=== PATIENT | male | born 1975 | race African-American/Black ===

== ENCOUNTER 2016-05-16 21:24 | Emergency (ER) | payer SELFPAY ==
[~2016-05-16] VITALS: Ht 188 cm; Wt 84.4 kg
[2016-05-16 22:13] VITALS: BP 113/79; PULSE 79; RESP 18; TEMP 98.5; O2SAT 100
[2016-05-16] MEDS ORDERED: IBUP-232 PO (23:05)
[2016-05-16] MEDS ORDERED: ORPH100T99 PO (23:05)
--- NOTE | 2016-05-16 23:05 | PD ---
HPI Chief Complaint: Back/ Neck Pain or Injury Time Seen by Provider: 22:57 Travel History International Travel<30 days: No Contact w/Intl Traveler<30days: No Traveled to known affect area: No History of Present Illness HPI The patient is a 41-year-old [place] male presents emergency department for back spasms. The patient states he was walking earlier today when he developed back spasms ever located in the thoracic region. The spasms "up-and- down the thoracic region and are worse with extension, flexion, and rotation. The patient denies any radiation of the pain into the neck or down into the lower extremities. The patient denies any nausea, vomiting, or abdominal pain. The patient denies any genitourinary symptoms including dysuria, frequency, urgency, hematuria, or incontinence. He denies any weakness or numbness of the upper or lower extremities. The patient denies any direct trauma to the back. He also denies any history of HIV, end-stage renal disease, or IV drug use. PFSH Past Medical History Diminished Hearing: No Musculoskeletal: Yes (BACK PAIN) Past Surgical History Other Surgery: Yes (ONE TESTICLE REMOVED) Social History Alcohol Use: Yes (8 BEERS A DAY) Tobacco Use: Yes (1 PPD) Substance Use: No Allergies-Medications (Allergen,Severity, Reaction): Coded Allergies: No Known Allergies (Unverified , 05/16/16) Reported Meds & Prescriptions Reported Meds & Active Scripts Active No Active Prescriptions or Reported Medications Review of Systems Except as stated in HPI: all other systems reviewed are Neg General / Constitutional: No: Fever HENT: No: Neck Stiffness, Neck Pain Cardiovascular: No: Chest Pain or Discomfort Respiratory: No: Shortness of Breath Gastrointestinal: No: Nausea, Vomiting Genitourinary: No: Urgency, Frequency, Dysuria, Incontinence Musculoskeletal: Positive: Limited ROM, Pain Skin: No Rash Neurologic: No: Paresthesia, Sensory Disturbance Physical Exam Narrative GENERAL: Awake, alert, pleasant 41-year-old male who appears his stated age is in no acute respiratory distress. SKIN: Warm and dry. HEAD: Atraumatic. Normocephalic. EYES: No injection or drainage. NECK: Trachea midline. No JVD. No meningeal signs. GASTROINTESTINAL: Abdomen soft, non-tender, nondistended. Back: No CVA tenderness. Patient has tenderness of the paravertebral muscles in the midthoracic region. Pain is elicited with extension, rotation, and flexion. No obvious deformity or step-off over the thoracic spine. MUSCULOSKELETAL: No obvious deformities. No clubbing. No cyanosis. No edema. Ambulates without difficulty. NEUROLOGICAL: Awake and alert. No obvious cranial nerve deficits. Motor grossly within normal limits. Normal speech. Nonfocal. PSYCHIATRIC: Appropriate mood and affect; insight and judgment normal. Data Data Last Documented VS Vital Signs Date Time Temp Pulse Resp B/P Pulse Ox O2 Delivery O2 Flow Rate FiO2 05/16/16 22:13 98.5 79 18 113/79 100 Orders Ketorolac Inj (Toradol Inj) (05/16/16 23:15) Orphenadrine Inj (Norflex Inj) (05/16/16 23:15) [facility] Medical Decision Making Medical Screen Exam Complete: Yes Emergency Medical Condition: Yes Medical Record Reviewed: Yes Differential Diagnosis Differential diagnosis includes back pain, fracture, spasm, nephrolithiasis, epidural abscess. Narrative Course The patient is afebrile and has no significant risk factors for epidural abscess as he denies HIV, ESRD, and IVDA. The patient's pain is elicited with movement, therefore, will be treated with anti-inflammatories and muscle relaxers. The patient is advised to follow-up with a primary physician and return if symptoms worsen or progress. Diagnosis Primary Impression: Back muscle spasm Patient Instructions: General Instructions Additional Instructions: Norflex and ibuprofen as directed. Stretching exercises, apply ice and/or heat to the affected area. Follow-up with a primary physician. Med/Other Pt SpecificInfo: Prescription(s) given Scripts Ibuprofen 600 Mg [id number] Mg PO Q6H PRN (Pain/Inflammation) #20 TAB Ref 0 Prov:Michele Chen MD 05/16/16 Orphenadrine ER 12 HR (Orphenadrine CR)100 Mg [id number] Mg PO Q12HR 14 Days Ref 0 Prov:Michele Chen MD 05/16/16 Disposition: 01 DISCHARGE HOME Condition: Stable Michele Chen MD May 16, 2016 23:05
[2016-05-16] MEDS ORDERED: KETOROLAC TROMETHAMINE 60 MG/2 ML (IM) VIAL IM ONE (23:15)
[2016-05-16] MEDS ORDERED: ORPHENADRINE INJ 60 MG/2 ML AMP IM ONE (23:15)
[2016-05-16 23:49] VITALS: BP 117/74
== END 2016-05-16 23:50 | disposition home or self-care (01) ==
LOC: PHEFT 21:24
DX: M62.830 Muscle spasm of back (principal); F17.200 Nicotine dependence, unspecified, uncomplicated; Z87.39 Personal history of other diseases of the musculoskeletal system and connective tissue
CPT/HCPCS: 96372; 99283; J1885; J2360

== ENCOUNTER 2016-11-30 08:36 | Emergency (ER) | payer SELFPAY ==
[~2016-11-30] VITALS: Ht 185.4 cm; Wt 88.0 kg
[~2016-11-30 08:36] MED LIST: IBUP-232 PO; ORPH100T99 PO
[2016-11-30 08:42] VITALS: BP 124/65; PULSE 70; RESP 16; TEMP 97.7; O2SAT 98
[2016-11-30 09:00] VITALS: BP 124/65; PULSE 70; RESP 16; TEMP 97.7; O2SAT 98
[2016-11-30] MEDS ORDERED: IBUP800T23 PO (09:00)
--- NOTE | 2016-11-30 09:00 | PD ---
HPI . Right elbow pain Chief Complaint: Right elbow pain Time Seen by Provider: 08:52 Travel History International Travel<30 days: No Contact w/Intl Traveler<30days: No History of Present Illness HPI This patient presents with a two-week history of atraumatic right elbow pain. He rates the pain 10/10. No exacerbating or relieving factor. He states that he does not work on his hands and knees. He states that he does not have a job. He has not taken anything for it. There has been no associated fever or any other systemic complaints. PFSH Past Medical History Diminished Hearing: No Musculoskeletal: Yes (BACK PAIN) Past Surgical History Other Surgery: Yes (ONE TESTICLE REMOVED) Social History Alcohol Use: Yes (8 BEERS A DAY) Tobacco Use: Yes (1 PPD) Substance Use: No Allergies-Medications (Allergen,Severity, Reaction): Coded Allergies: No Known Allergies (Unverified , 05/16/16) Reported Meds & Prescriptions Reported Meds & Active Scripts Active Ibuprofen 600 Mg Tab 600 Mg PO Q6H PRN Orphenadrine CR (Orphenadrine Citrate) 100 Mg Tab 100 Mg PO Q12HR 14 Days Review of Systems Except as stated in HPI: all other systems reviewed are Neg Musculoskeletal: Positive: Arthralgias Physical Exam Narrative GENERAL: Awake and alert and in no acute distress. He reports his pain as 10/ 10 but is sitting comfortably on the stretcher. He does not have a grimace on his face. He looks relaxed. SKIN: Warm and dry. No redness or warmth. HEAD: Atraumatic. Normocephalic. EYES: Pupils equal and round. NECK: Trachea midline. CARDIOVASCULAR: Regular rate and rhythm. RESPIRATORY: No accessory muscle use. MUSCULOSKELETAL: No obvious deformities. No edema. Swollen bursa on the right olecranon. NEUROLOGICAL: Awake and alert. No obvious cranial nerve deficits. Motor grossly within normal limits. Normal speech. PSYCHIATRIC: Appropriate mood and affect; insight and judgment normal. Data Data Last Documented VS Vital Signs Date Time Temp Pulse Resp B/P (MAP) Pulse Ox O2 Delivery O2 Flow Rate FiO2 11/30/16 08:42 97.7 70 16 124/65 (84) 98 Room Air MDM Medical Decision Making Medical Screen Exam Complete: Yes Emergency Medical Condition: Yes Differential Diagnosis Differential diagnosis of joint pain includes but is not limited to arthritis, gout, sprain/strain, fracture, dislocation, bursitis Narrative Course Patient presents with atraumatic swelling and pain of the right elbow. His examination is classic for bursitis. He will be discharged on ibuprofen. Diagnosis Primary Impression: Bursitis of elbow Qualified Codes: M70.21 - Olecranon bursitis, right elbow Patient Instructions: Elbow Bursitis (GEN) Med/Other Pt SpecificInfo: Prescription(s) given Scripts Ibuprofen (Ibuprofen) 800 Mg Tab 800 MG PO Q8H Y for Pain/Inflammation, #60 TAB 0 Refills Prov: Merly Smiley MD 11/30/16 Disposition: 01 DISCHARGE HOME Condition: Stable Merly Smiley MD Nov 30, 2016 09:00
== END 2016-11-30 09:18 | disposition home or self-care (01) ==
LOC: PHED 08:36
DX: M70.21 Olecranon bursitis, right elbow (principal); F17.210 Nicotine dependence, cigarettes, uncomplicated
CPT/HCPCS: 99283

== ENCOUNTER 2017-07-22 20:48 | Emergency (ER) | payer SELFPAY ==
[~2017-07-22] VITALS: Ht 185.4 cm; Wt 89.3 kg
[2017-07-22 21:06] VITALS: BP 151/87; PULSE 94; RESP 20; TEMP 98.9; O2SAT 98
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
[2017-07-22] MEDS ORDERED: IBUPROFEN 600 MG TAB PO ONE (22:00)
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
[2017-07-22] MEDS ORDERED: IBUP-232 PO (22:18)
== END 2017-07-22 22:35 | disposition home or self-care (01) ==
LOC: PHEFT 20:48
DX: S52.202A Unspecified fracture of shaft of left ulna, initial encounter for closed fracture (principal); Y08.02XA Assault by strike by baseball bat, initial encounter; F17.200 Nicotine dependence, unspecified, uncomplicated
CPT/HCPCS: 29125; 73090